=== PATIENT | male | born 1985 | race Caucasian/White ===

== ENCOUNTER → 2020-07-10 | Outpatient (CLI) | payer OTHER ==
--- NOTE | 2020-07-10 17:02 | KCIC ---
4 view study of the left knee Clinical indications: Medial left knee pain for 3 weeks with swelling. No known injury. FINDINGS: No acute fracture or dislocation or lytic process is evident. No significant arthritic change is seen. The patella is normally aligned. No significant left knee joint effusion is seen. IMPRESSION: No significant radiographic abnormality. Electronically signed by: Nikunj Rocha MD (07/10/2020 4:59 PM) [id number]
== END | disposition home or self-care (01) ==
LOC: KCIC 13:06
PROVIDERS: ATTEND Family Medicine
DX: M17.12 Unilateral primary osteoarthritis, left knee (principal); M23.92 Unspecified internal derangement of left knee
CPT/HCPCS: 73564

== ENCOUNTER → 2020-09-07 | Outpatient (CLI) | payer OTHER ==
[~2020-09-07] MED LIST: HYDR-3165 PO
== END ==
LOC: LAB 13:28
PROVIDERS: ATTEND Orthopaedic Surgery
DX: Z01.812 Encounter for preprocedural laboratory examination (principal); Z20.828 Contact with and (suspected) exposure to other viral communicable diseases
CPT/HCPCS: U0003

== ENCOUNTER 2020-09-11 08:46 | Day surgery (SDC) | payer OTHER ==
[~2020-09-11] VITALS: Ht 177.8 cm; Wt 72.1 kg
[~2020-09-11 08:46] MED LIST changes: +BUPIVACAINE-EPI 0.5%-1:200000 MPF 30 ML VIAL. INJ ONE; -HYDR-3165 PO; +HYDROmorphone 2 MG/ML VIAL IV PRN; +IV RINGERS,LACTATED 1000ML 1,000 ML IV SCH; +LIDOCAINE 1% PF 2 ML VIAL. ID PRN; +MORPHINE SULFATE 2 MG/ML VIAL. IV PRN; +ONDANSETRON PF 4 MG/2 ML VIAL. IV PRN; +PROCHLORPERAZINE 10 MG/2 ML VIAL. IV PRN; +ceFAZolin SODIUM IV Push 1 GM VIAL. IVP PRN; +fentaNYL PF VIAL 100 MCG/2 ML VIAL IV PRN
[2020-09-11] MEDS ORDERED: fentaNYL PF VIAL 100 MCG/2 ML VIAL ONE (10:07)
[2020-09-11] MEDS ORDERED: MIDAZOLAM HCL/PF 2 MG/2 ML VIAL. ONE (10:07)
[2020-09-11] MEDS ORDERED: HYDR-3165 PO (10:14)
--- NOTE | 2020-09-11 10:15 | DISCH ---
DISCHARGE INSTRUCTIONS Condition on Discharge Condition on Discharge: Stable Activity After Discharge Activity Instructions for Disc: Activity as tolerated Weight Bearing Status after Di: As tolerated Diet after Discharge Diet after Discharge: Regular Wound Incision Care Wound/Incision Care: Change dressing (Remove dressing in 2 days may then shower no soaking in tub or pool until sutures removed) Contacting the after DC Call your doctor for: Concerns you may have Follow-Up Follow up with: Dr. Low 7 to 10 days MICHAEL LOW MD Sep 11, 2020 10:15
[2020-09-11] MEDS ORDERED: ONDANSETRON PF 4 MG/2 ML VIAL. ONE (11:10)
[2020-09-11] MEDS ORDERED: PROPOFOL 10 MG/ML (20ML) VIAL. IV ONE (11:10)
[2020-09-11] MEDS ORDERED: SEVOFLURANE 31 TO 60 MINUTES. IH ONE (11:10)
[2020-09-11] MEDS ORDERED: LIDOCAINE 2% PF 5 ML VIAL. ONE (11:10)
[2020-09-11] MEDS ORDERED: DEXAMETHASONE SOD PHOS 20 MG/5 ML VIAL. ONE (11:10)
[2020-09-11] MEDS ORDERED: HYDROcodone/APAP 7.5/325MG 1 TAB TABLET PO ONE (11:30)
[2020-09-11 12:00] VITALS: BP 112/57
--- NOTE | 2020-09-11 12:03 | PDOC4 ---
Operative Note Operative Note Date of surgery: 09/11/2020 Preoperative diagnosis: Left knee medial meniscal tear Postoperative diagnosis: Same Operative procedure: Left knee arthroscopy partial medial meniscectomy Surgeon: Devante Anesthesia: General Estimated blood loss: 5 cc Complications: None Operative indications: Please see my orthopedic clinic note for detailed operative indications and note that the patient did have a documented meniscal tear on MRI. I had gone over with him the risks benefits postoperative course of the potential operative treatment and the possibility of infection nerve or blood vessel damage medical or other anesthetic complications among others and he agrees to proceed with surgical evaluation and treatment. Operative text: Patient was identified procedure verified patient placed in the supine position on the operating table. After adequate amounts of general anesthesia were administered the left lower extremity was prepped and draped in standard sterile fashion with a thigh tourniquet. After timeout was performed patient procedure identified and verified the left lower extremity was exsanguinated by Esmarch bandage tourniquet inflated to 250 mmHg lateral portal established medial portal established using spinal needle localization and the knee joint was systematically examined. He was noted to have excellent pa tellofemoral tracking no loose bodies noted in the gutters or suprapatellar pouch there was a displaceable tear of the posterior horn medial meniscus which was trimmed back to stable tissue and radiused to eliminate stress risers. The ACL and lateral meniscus were probed and found to be intact and the knee was again toward to ensure no loose bodies present, the knee was then drained of arthroscopic fluid fat pad and portal areas were injected with half percent Marcaine plain portals were closed with nylon suture sterile soft dressings were applied toes were noted to be warm pink following deflation of tourniquet patient returned to recovery room in stable condition having tolerated the procedure well MICHAEL RUIZ MD Sep 11, 2020 12:03
== END 2020-09-11 12:42 | disposition home or self-care (01) ==
LOC: SURG 08:46
PROVIDERS: ATTEND Orthopaedic Surgery
DX: S83.242A Other tear of medial meniscus, current injury, left knee, initial encounter (principal); Z79.899 Other long term (current) drug therapy; Z72.89 Other problems related to lifestyle; Z98.890 Other specified postprocedural states; X58.XXXA Exposure to other specified factors, initial encounter; Y93.89 Activity, other specified; Y92.89 Other specified places as the place of occurrence of the external cause; Y99.8 Other external cause status
CPT/HCPCS: 29881; J0690; J1100; J2250; J2405; J2704; J3010